=== PATIENT | female | born 1985 | race Two or more races ===

== ENCOUNTER 2025-04-11 11:09 | Emergency (ER) | payer MEDICAID, SELFPAY ==
[2025-04-11 11:38] VITALS: BP 121/86; PULSE 121; RESP 19; TEMP 36.2; O2SAT 100; BMI 26.3
--- NOTE | 2025-04-11 11:40 | PD.EDABDPN ---
ED Abdominal Pain RME/HPI General Chief Complaint: Abdominal Pain Stated complaint: Abdominal pain since last night, vomit X 1 Time seen by provider: 04/11/25 11:40 Arrival date/time: 04/11/25 11:09 RME / HPI RME / HPI narrative: See [facility] for Dr. Carter's HPI Documentation. Related Data Home Medications ?Medication ?Instructions ?Recorded ?Confirmed levothyroxine 25 mcg tablet 25 mcg PO QDAY 12/06/17 04/21/22 vit no.95-ferrous 1 tab PO DAILY 05/11/20 04/21/22 fumarate 28 mg-folic acid 800 mcg tablet () metformin 500 mg tablet 500 mg PO DAILY 04/21/22 04/21/22 Previous Rx's ?Medication ?Instructions ?Recorded progesterone micronized 200 mg 200 mg PO QPM 30 days #30 caps 04/24/22 capsule acetaminophen 300 mg-codeine 30 mg 2 tab PO Q8H PRN pain #20 tabs 04/11/25 tablet ondansetron 4 mg disintegrating 4 mg PO TID PRN nausea and 04/11/25 tablet vomiting 30 days #10 tabs Allergies Allergy/AdvReac Type Severity Reaction Status Date / Time No Known Allergies Allergy Verified 04/11/25 11:15 Review of Systems Review of Systems Systems Reviewed: All systems reviewed, normal except as documented Past Medical History Past Medical History GASTROINTESTINAL: Positive Gastrointestinal Disorders, Gall Bladder Disease ([place]AP [place]), Gastroesophageal Reflux Disease and Obesity REPRODUCTIVE: Positive Previous Pregnancies (G6) ENDOCRINE: Positive Endocrine Disorders, Diabetes Mellitus Type 2 (TA[facility] PO MED) and Hypothyroidism (TAKES MED) OTHER HISTORY: Positive Chicken Pox Surgical History SURGICAL: Positive Abdominal Surgery Social History SMOKING STATUS: Never smoker Course Quality Measures none Orders Category Date Time Status CT abdomen pelvis wo con Stat Exams 04/11/25 11:42 Completed Amylase Stat Lab 04/11/25 12:02 Completed Bilirubin,Direct Stat Lab 04/11/25 12:02 Completed CBC Stat Lab 04/11/25 12:02 Completed CMP [Comprehensive Metabolic Panel] Stat Lab 04/11/25 12:02 Completed HCG,Qualitative Serum Stat Lab 04/11/25 12:02 Completed Hepatitis Acute Panel Stat Lab 04/11/25 12:02 Received Lipase Stat Lab 04/11/25 12:02 Completed Magnesium Stat Lab 04/11/25 12:02 Completed UA, C/S IF [Urinalysis, C/S if Indicated] Stat Lab 04/11/25 12:32 Completed ACETAMINOPHEN w/COD 300-30 [Tylenol w/Cod #3] Med 04/11/25 11:39 Discontinued 2 tab PO X1 ONE Ondansetron Odt [Zofran Odt] Med 04/11/25 11:39 Discontinued 4 mg PO X1 ONE Vital Signs Vital signs: Vital Signs Temperature 97.1 F 04/11/25 11:38 Pulse Rate 121 H 04/11/25 11:38 Respiratory Rate 19 04/11/25 11:38 Blood Pressure 121/86 H 04/11/25 11:38 Pulse Oximetry (%) 100 04/11/25 11:38 Oxygen Delivery Method Room Air 04/11/25 11:38 Abdominal Pain MDM MDM Narrative MDM Narrative:: This section includes all my notes and documentations, including HPI, PE, and ED course. Clarke Carter MD HPI: 39-year-old female here with abdominal pain and vomiting since last night. Used Zepbound the day for yesterday after not using it for several weeks. No other complaints. ROS: All negative except as documented in HPI. Physical Exam: General: Alert and oriented. Appears uncomfortable. Eyes: Conjunctivae and lids clear. ENT: No nasal congestion. Neck: Supple. Heart: RRR. Lungs: No respiratory distress. Good air movement. No rhonchi, wheezing, rales. Abdomen: Soft with tenderness, difficult to localize. Normal bowel sounds. No distension. No rebound or guarding. Back: No CVA tenderness. Skin: Warm and dry. Neuro: Alert and oriented X 3. I reviewed all diagnostic test results: My review of the abdomen/pelvis CT report is NAD. Blood tests and urine tests remarkable for LFT elevation. At this point, diagnoses include: Abdominal pain with LFT elevation Treatment here included: Two Tylenol #3 Zofran ODT 4 mg She felt much better. Recommended supportive care and more outpatient workup. Based on my best medical judgment, made decision no further evaluation or treatment indicated at this time. Patient understands and agrees to the discharge instructions customized and printed, see below. Discharge Instructions from Dr. Carter printed for you: 1. After evaluation, you are treated for adverse reaction from Zepbound. Avoid Zepbound until cleared by doctor taking care of you. 2. Clear liquid diet for 24 hours. Then advance diet as tolerated. Zofran for nausea/vomiting. Tylenol with codeine for severe pain. For good hydration, increase oral fluid and maintain clear urine. If dark or yellow, increase oral fluid. 3. See a private doctor on 04/13/2025 for recheck. Ask to review all test results and official radiology reports, to make sure you receive all necessary follow-ups and monitoring, including liver function test which was elevated today (meaning damage, probably from the medication). 4. Seek immediate medical care with worsening or with any concerns. Clarke Carter MD Patient data External records reviewed:: [facility] previous records Clinical information provided by:: patient Social determinants that could affect healthcare access:: none Patient has the following chronic illnesses:: Diabetes Mellitus Type 2, GERD, and hypothyroidism. How is presenting disease/condition affected by chronic disease/condition?: exacerbated by Evaluation data The following diagnostics were reviewed and interpreted by me:: lab results and radiology exam(s) Lab and/or radiology exams considered but not ordered:: none Interpretation Summary: I reviewed all diagnostic test results: My review of the abdomen/pelvis CT report is NAD. Blood tests and urine tests remarkable for LFT elevation. Medications / Prescriptions Medications or Prescriptions considered but not ordered:: none Medication administrations:: Medication Administration History Discontinued Medications Acetaminophen/Codeine Phosphate (Acetaminophen W/Cod 300-30 Tablet) 2 tab PO X1 ONE Stop: 04/11/25 11:40 Last Admin: 04/11/25 11:54 Dose: 2 tab Documented By: LT Ondansetron HCl (Ondansetron Odt 4 Mg Tabrap) 4 mg PO X1 ONE; Protocol Stop: 04/11/25 11:40 Last Admin: 04/11/25 11:54 Dose: 4 mg Documented By: LT Treatment here included: Two Tylenol #3 Zofran ODT 4 mg Consultations Consultation(s) initiated? (list below): No Diagnosis Differential diagnosis abdominal pain: acute appendicitis, calculus of kidney, constipation, diverticulitis, endometriosis, gastroenteritis, pancreatitis and small bowel obstruction Most likely diagnosis given after review of the tests above:: Abdominal pain due to Zepbound Admission Indicated Admission indicated?: not indicated Explain why admission is indicated or not indicated:: With significant improvement and no condition needing emergent intervention, there was no indication for admission. Admission Request Was there a request for admission?: No Disposition Plan Disposition Plan: Discharge Discharge Attestation Discharge Attestation: The patient and all family members were given an opportunity to ask questions and understood the discharge instructions. Discharge instructions specifically effects, indications for sooner follow up or return to the emergency department, and the expected course of current diagnosis. Patient condition: Stable Discharge Plan Plan Patient Disposition: HOME (Self Care) Prescriptions/Referrals Prescriptions/Med Rec: New acetaminophen-codeine 300-30 mg tablet 2 tab PO Q8H MDD 6 PRN (Reason: pain) Qty: 20 0RF ondansetron 4 mg tablet,disintegrating 4 mg PO TID PRN (Reason: nausea and vomiting) 30 Days Qty: 10 0RF No Action PNV no.95-ferrous fumarate-FA [] 28 mg iron- 800 mcg tablet 1 tab PO DAILY Patient Comments: take 1 tablet by mouth once daily levothyroxine 25 mcg Tablet 25 mcg PO QDAY metformin 500 mg tablet 500 mg PO DAILY Patient Comments: take 1 tablet by mouth once daily WITH A MEAL progesterone micronized 200 mg capsule 200 mg PO QPM 30 Days Qty: 30 2RF Referrals: Kerrie Torres PA-C [Primary Care Provider] - In 1 week Problem List Clinical Impression: Abdominal pain Patient/Caregiver Discharge Instructions Discharge Activity: activity as tolerated Education Materials: ED Abdominal Pain Unkn Cause Fem Additional Instructions: Discharge Instructions from Dr. Carter printed for you: 1. After evaluation, you are treated for adverse reaction from Zepbound. Avoid Zepbound until cleared by doctor taking care of you. 2. Clear liquid diet for 24 hours. Then advance diet as tolerated. Zofran for nausea/vomiting. Tylenol with codeine for severe pain. For good hydration, increase oral fluid and maintain clear urine. If dark or yellow, increase oral fluid. 3. See a private doctor on 04/13/2025 for recheck. Ask to review all test results and official radiology reports, to make sure you receive all necessary follow-ups and monitoring, including liver function test which was elevated today (meaning damage, probably from the medication). 4. Seek immediate medical care with worsening or with any concerns. Print Language: Senegalese Stand Alone Forms: Ilene Award Info., Patient Portal Info Letter
--- NOTE | 2025-04-11 11:42 | XR_ITS ---
Examination: CT abdomen and pelvis without contrast. Coronal 3-D reconstructions. Sagittal 2-D reconstructions. Date and time of exam: April 11, 2025, 1349 hours INDICATIONS: Lower abdominal pain today CTDI: vol (mGy): 10.2 DLP: (mGycm): 509 Technique: Axial images of the abdomen have been obtained, 3 mm slice thickness Intravenous contrast material has not been administered. Low dose protocols were performed. One or more of the following dose reduction techniques were used; automated exposure control, adjustment of the mA and/or KV according to patient size, use of iterative reconstruction technique. Findings: No liver or splenic lesion Absent gallbladder No pancreatic mass. Normal adrenal glands No renal or ureteral calculi, no hydronephrosis Normal appendix No bowel obstruction or diverticulitis. No free air. No definite pelvic mass Urinary bladder intact Mild osteopenia IMPRESSION: Negative for extrahepatic biliary tract dilatation. No renal or ureteral calculi, no hydronephrosis Normal appendix No bowel obstruction or diverticulitis
[2025-04-11] MEDS: ACETAMINOPHEN w/COD 300-30 TABLET 2 TAB PO (11:54)
[2025-04-11] MEDS: ONDANSETRON ODT 4 MG TABRAP PO (11:54)
[2025-04-11 12:17] LABS: Basophils # (Auto) 0.0 Thou/mm3 (0.0-0.2); Basophils % (Auto) 0 % (0-2.5); Eosinophils # (Auto) 0.0 Thou/mm3 (0.0-0.5); Eosinophils % (Auto) 0 % (0-10); Hematocrit 34.0 % (36.0-46.0); Hemoglobin 10.3 g/dL (12.0-16.0); Immature Granulocytes Auto 0.04 Thou/mm3 (0.00-0.00); Lymphocytes # (Auto) 0.6 Thou/mm3 (1.0-4.8); Lymphocytes % (Auto) 6 % (10-50); Mean Corpuscular HGB Conc 30.3 g/dl (31.0-37.0); Mean Corpuscular Hemoglobin 21.3 pg (25.0-35.0); Mean Corpuscular Volume 70 fL (80-100); Monocytes # (Auto) 0.4 Thou/mm3 (0.0-0.8); Monocytes % (Auto) 4 % (0-12); Neutrophils # (Auto) 9.5 Thou/mm3 (1.8-7.7); Neutrophils % (Auto) 90 % (37-80); Nucleated Red Blood Cell # 0.00 Thou/mm3 (0.00-0.00); Nucleated Red Blood Cell % 0 /100 WBC (0); Platelet Count 411 Thou/mm3 (140-440); RDW Standard Deviation 46.6 fL (36.4-46.3); Red Blood Count 4.84 Miln/mm3 (4.00-5.20); White Blood Count 10.6 Thou/mm3 (3.6-11.0)
[2025-04-11 12:31] LABS: Alanine Aminotransferase 462 U/L (10-49); Albumin, Serum 5.0 gm/dL (3.5-5.0); Albumin/Globulin Ratio 1.7 (1.2-2.2); Alkaline Phosphatase 206 U/L (46-116); Amylase 53 U/L (30-118); Anion Gap 9 (7-16); Aspartate Amino Transferase 458 U/L (0-34); BUN/Creatinine Ratio 10 Ratio (12-20); Bilirubin,Direct 0.2 mg/dL (0.0-0.3); Bilirubin,Total 0.6 mg/dL (0.3-1.2); Blood Urea Nitrogen 8 mg/dL (9-23); Calcium 9.5 mg/dL (8.3-10.6); Calcium (Corrected) 9.5 mg/dL (8.5-10.1); Carbon Dioxide 24.8 mMol/L (20.0-31.0); Chloride 103 mMol/L (98-107); Creatinine (Component) 0.8 mg/dL (0.6-1.3); Estimated Creatinine Clearance 106.1 mL/min (>60); Globulin 2.9 gm/dL (2.3-3.5); Glucose 104 mg/dL (74-106); Lipase 35 U/L (12-53); Magnesium 1.9 mg/dL (1.6-2.6); Osmolality,Calculated 272 (275-295); Potassium 3.7 mMol/L (3.4-5.1); Sodium 137 mMol/L (136-145); Total Protein 7.9 gm/dL (5.7-8.2); eGFR > 60 See Note
[2025-04-11 12:36] LABS: Collection Type, Urine Clean Catch
[2025-04-11 12:50] LABS: HCG,Qualitative Serum Negative
[2025-04-11 13:15] LABS: Bacteria,Urine Rare; Bilirubin,Urine Negative (Negative); Blood,Urine Trace (Negative); Clarity,Urine Clear (Clear/Hazy); Color,Urine Lt-Yellow (Lt Yel-Yel); Culture Indicated,Urine Not Indicated; Glucose, Urine Negative (Negative); Ketones,Urine Trace (Negative); Leukocyte Esterase,Urine Negative (Negative); Nitrite,Urine Negative (Negative); PH,Urine 6.0 (5.0-7.0); Protein,Urine Negative (Neg - Trace); RBC,Urine 1 /hpf (0-3); Specific Gravity,Urine 1.018 (1.001-1.035); Squamous Epithelial Cell,Urine 4 /hpf (0-5); Urobilinogen,Urine Negative mg/dL (0.0-1.0); WBC,Urine 2 /hpf (0-5)
[2025-04-12 21:33] LABS: Hepatitis A Antibody IgM Non Reactive (Non React); Hepatitis B Core Antibody IgM Non Reactive (Non React); Hepatitis B Surface Antigen Non Reactive (Non React); Hepatitis C Antibody Non Reactive (Non React)
== END 2025-04-11 15:26 | disposition home or self-care (01) ==
PROVIDERS: Emergency Provider Emergency Medicine; PCP Physician Assistant Medical
DX: R10.30 Lower abdominal pain, unspecified (principal); R11.2 Nausea with vomiting, unspecified
CPT/HCPCS: 36415; 74176; 80053; 80074; 81001; 82150; 82248; 83690; 83735; 84703; 85025; 99283; Q0162; A9270